=== PATIENT | female | born 1940 | race Caucasian/White ===

== ENCOUNTER 2017-07-25 19:59 | Inpatient (IN) ==
--- NOTE | 2017-07-25 21:03 | Diag Imaging Result Doc PS360 ---
EXAM: CT PELVIS W/O CONTRAST HISTORY: pain TECHNIQUE: CT pelvis without contrast. Dose reduction protocol. COMPARISON: None. No plain films taken. FINDINGS: There has been prior orthopedic replacement of the left hip. The femoral head component is well-positioned within the acetabular component. There is an intertrochanteric fracture to the right hip. Femoral head component remains in the acetabulum. Femoral shaft is rotated. No separation at the pubic symphysis. The bones are osteopenic. IMPRESSION: Intertrochanteric fracture to the right hip. Electronically signed by Ej Camarillo 07/25/2017 9:01 PM
[2017-07-25] MEDS ORDERED: NS 1,000 ML IV ONE (22:31)
--- NOTE | 2017-07-25 22:38 | PROVIDER DOCUMENTATION ---
This chart was entered by Tasha Dooley Scribe, acting as scribe for Darryl Amaro MD. HPI-Musculoskeletal Pain/Inj - GENERAL Chief Complaint: Hip Pain Stated Complaint: FALL/ R HIP PAIN Time Seen by Provider: 07/25/17 20:22 Source: patient - HX OF PRESENT ILLNESS-MUSKULOSKELTAL Nature of Presenting Problem: 77 year old F presents to the ED from [facility] for a fall. Pt fall and hit head on the door and is c/o right hip pain. Unknown of LOC. Quality of Pain: reports: aching Severity in ED: mild Onset/Duration: this evening Timing: still present Any recent injury?: Yes Locality of Occurance: Other (W) Similar Symptoms Previously?: No Review of Systems - Adult - REVIEW OF SYSTEMS - ADULT Constitutional: denies: chills, fever Eyes: reports: no symptoms reported Ears, Nose, Mouth & Throat: reports: no symptoms reported Cardiovascular: reports: no symptoms reported Respiratory: denies: cough, shortness of breath Gastrointestinal: denies: nausea, vomiting Genitourinary: reports: no symptoms reported Musculoskeletal: reports: bone pain, joint pain. denies: muscle aches, muscle weakness Integumentary: denies: skin sores/ulcer, skin thickening Neurological: reports: no symptoms reported Psychiatric: reports: no symptoms reported Endocrine: reports: no symptoms reported Hematologic/Lymphatic: reports: no symptoms reported Allergic/Immunologic: reports: no symptoms reported All Other Systems: Reviewed and Negative Past History - Adult - PAST MEDICAL HISTORY-ADULT Review of Records: reports: Nursing Assessment Review, Medications Reviewed Major Childhood Illnesses: reports: denies history Cardiovascular: reports: CHF, HTN Respiratory: reports: COPD Gastrointestinal: reports: GERD Obstetrical/Gynecological: reports: uterine/ovarian cancer Neurological: reports: CVA Psychiatric: reports: bipolar, schizophrenia, other (paranoia) Endocrine/Immune: reports: Diabetes, thyroid disorder - IMMUNIZATION STATUS Childhood Immunizations: See Nurse Assessment Flu Vaccine: See Nurse Assessment - SOCIAL HISTORY Smoking: quit greater than 1 year Substance Use: none/never Alcohol Use Frequency: sober (former use) Living Situation: group ([facility] for now) Physical Exam-Injury Related - Physical Exam-Injury Related Initial Vital Signs Reviewed: Yes General Appearance: alert Head, Ears, Nose, Mouth & Throat: normocephalic/atraumatic Respiratory: chest non-tender, lungs clear, normal breath sounds Cardiovascular: normal peripheral pulses, regular rate, rhythm, no edema Abdominal Exam: non tender, soft Extremity: tenderness (right anterior knee with painful ROM to knee and right hip) Integumentary: normal color, warm/dry Progress - PLAN OF CARE/RESULTS Progress/Plan/Lab Results: Vital Signs - 8 hr 07/25/17 20:10 Temperature 97.9 F Pulse Rate 89 Respiratory Rate 24 Blood Pressure 136/127 O2 Sat by Pulse Oximetry 96 Orders Category Date Time Status Admit - [facility] Routine AdmDCTranf 07/25/17 22:31 Ordered Neurological Check Q4H Care 07/25/17 22:33 Active Vital Signs Order Q 4-HR ASSESS Care 07/25/17 22:31 Active Z-Document. for Tele Applied ORDERED Care 07/25/17 22:33 Active NPO Diet 07/25/17 22:[address] PELVIS W/O CONTRAST [CT] Stat Exams 07/25/17 20:23 Completed 0.9% Sodium Chloride Inj [Ns] 1,000 ml Med 07/25/17 22:31 Discontinued IV KVO Morphine Med 07/25/17 22:31 Active 2 mg IV Q2H PRN PRN Telemetry [OM.EQ] Routine Oth 07/25/17 22:31 Active Transfer/Admit Order [TRANSFER] Routine Transfer 07/25/17 22:26 Ordered - CT/MRI 1 CT Study: Pelvis Impression: Abnormal CT Results: Intertrochanteric fracture to the right hip--Dr. Camarillo(radiologist) - CONSULTS/PCP/HOSPITALIST Notification #1 *Consult/PCP/Hospitalist*: Dr. Pascal(Hospitalist) Time Discussed: 21:53 Reason/Comments: consult for admission Consult Disposition: Admit Departure - Departure Date of Disposition Decision: 07/25/17 Time of Disposition Decision: 22:37 DIAGNOSIS: Fractured hip Disposition: ADMITTED INPATIENT 09 Certified Medical Emergency: Emergent Condition: Stable Referrals and Follow-Ups: None,PCP [Primary Care Provider] - - Critical Care Note This patient required my direct & personal management of CC.: No Attestation - Physician/ TRISTIAN Attestation Patient care was provided by Advanced Practice Provider:: No The physician spent face to face time with patient:: Yes Advanced Practice Provider documentation review:: Supervising physician onsite and consulted in the evaluation and care of this patient. The physician did have a face to face encounter with the patient. This chart was documented by the indicated scribe, (Tasha Dooley Scribe) and accurately reflects the services I performed and decisions made by me, Darryl Amaro MD, as attested by the provider's signature.
[2017-07-26] MEDS ORDERED: NS 1,000 ML IV SCH (01:09)
[2017-07-26] MEDS ORDERED: ZOFRAN IV PRN ×2 (01:25→15:28)
[2017-07-26 01:41] LABS: MANUAL DIFF NEEDED? NO
[2017-07-26 01:43] LABS: BASO% 0.1 % (0.0-0.8); HEMATOCRIT 32.7 % (37.0-47.0); HEMOGLOBIN 10.8 g/dL (12.0-16.0); IMM GRAN# 0.03 X1000 (0.0-0.04); IMM GRAN% 0.3 % (0.0-0.5); LYMPH# 0.93 X1000 (1.2-3.4); LYMPH% 8.7 % (20.5-51.1); MCH 28.9 PG (27-31); MCV 87.4 FL (81-99); MONO# 1.37 X1000 (0.11-0.59); MONO% 12.7 % (1.7-9.3); MPV 10.1 FL (7.4-10.4); NEUT% 78.2 % (42.2-75.2); PLT 316 X1000 (130-400); RBC 3.74 XMIL (4.2-5.4)
[2017-07-26 01:51] LABS: INR 1.02; PROTIME 10.7 Seconds (9.2-11.7); PTT 27.3 Seconds (22.0-36.0)
[2017-07-26 02:06] LABS: ALBUMIN 3.6 g/dL (3.5-5.0); CALCIUM 8.9 mg/dL (8.8-10.2); POTASSIUM 3.5 mmol/L (3.5-5.1); TOTAL BILIRUBIN 0.23 mg/dL (0.20-1.00); TOTAL PROTEIN 6.4 g/dL (6.3-8.3)
[2017-07-26] MEDS: MORPHINE IV PRN ×3 (02:50→21:28)
[2017-07-26 03:47] LABS: URINE CULTURE NEEDED? NO; URINE MICRO REVIEW NEEDED? NO; URINE SOURCE CATH
[2017-07-26 04:09] LABS: BILIRUBIN URINE NEGATIVE (NEGATIVE); BLOOD URINE NEGATIVE (NEGATIVE); COLOR STRAW; GLUCOSE URINE NEGATIVE (NEGATIVE); LEUKOCYTES URINE NEGATIVE (NEGATIVE); NITRITE URINE NEGATIVE (NEGATIVE); PROTEIN URINE NEGATIVE (NEGATIVE); SP GRAVITY URINE 1.003; TURBIDITY URINE CLEAR (CLEAR); UROBILINOGEN URINE NORMAL (NORMAL)
[2017-07-26 04:10] LABS: UR EPITHELIAL CELLS <10 /HPF (<10); URINE BACTERIA NEGATIVE /HPF; URINE RBC <10 /HPF (<10); URINE WBC <10 /HPF (<10)
[2017-07-26] MEDS: PROTONIX IV SCH (04:47)
[2017-07-26] MEDS: SODIUM CHLORIDE 0.9% INJ SCH (04:47)
[2017-07-26] MEDS: APRESOLINE IV PRN ×2 (05:37→17:28)
--- NOTE | 2017-07-26 06:02 | Diag Imaging Result Doc PS360 ---
EXAM: CHEST-PORTABLE HISTORY: copd TECHNIQUE: Semiupright portable AP COMPARISON: 07/23/2017 FINDINGS: The lungs are well expanded. Heart is not enlarged. The vessels are not distended. There are no infiltrates. No pleural effusions identified. IMPRESSION: Negative chest. Electronically signed by Ej Camarillo 07/26/2017 6:00 AM
--- NOTE | 2017-07-26 07:59 | HISTORY AND PHYSICAL ---
CHIEF COMPLAINT: Fall with hip pain. HISTORY OF PRESENT ILLNESS: Ms. Morton is a 77-year-old female, who went to [facility] from [facility] after a fall. A CT scan of her abdomen and pelvis showed a right intertrochanteric hip fracture. She was transferred to [facility] for surgical consultation. She has a past medical history of hypertension, hypothyroidism, osteoporosis, rheumatoid arthritis, chronic back, knee and left hip pain. She also has COPD, nutritional deficits, a history of uterine cancer. Has diet controlled diabetes mellitus type 2. This is all from her previous medical history. Daughter is at bedside however, she has had a stroke and is unable to give very much information about her mother. Her mother has been in [facility] for roughly 5 weeks. I am unsure exactly what she went to [facility] for. Her daughter stated that she thinks it was because she started mixing up her medications. At any rate, the patient is oriented only to person. She does know her daughter. She is disoriented to place, time and situation. No laboratory data has been obtained at this point. The patient will be admitted for further evaluation and treatment. PAST SURGICAL HISTORY: 1. Appendectomy. 2. Partial thyroidectomy. 3. Left hip surgery in 2016. 4. Bilateral cataract surgery. 5. Complete hysterectomy. FAMILY HISTORY: Mother had CVA and coronary artery disease. All also had a thyroidectomy. Father had hypertension. Daughter as noted above has had a stroke. SOCIAL HISTORY: Denies tobacco, quit drinking 33 years ago and went to . Remote history of marijuana use. No illicit drug use at this point. Was living at home alone from what I understand, 5 weeks ago and has been in [facility] for the past 5 weeks. ALLERGIES: No known drug allergies. HOME MEDICATIONS: Nursing is working on reconciling a list of home medications. However it is not completed. Order has been placed for nursing to place reconciled medications in the computer. REVIEW OF SYSTEMS: Fourteen point review of systems conducted with the patient. Pertinent positives listed above in the HPI. This was limited due to patient's mentation. However, she denied further complaint and all other systems were reviewed and negative. PHYSICAL EXAMINATION: VITAL SIGNS: Temp 98 degrees, pulse 104, respirations 18, blood pressure 170/89, oxygen saturation 97 on room air. GENERAL: This is a pleasantly confused 77-year-old female, looks older than stated age lying in the ER stretcher. States that she has continued hip pain. She is in no acute distress. Oriented to person. Disoriented to time and situation. Is not able to answer most questions. HEENT: Head is atraumatic, normocephalic. Pupils equal, round, reactive to light. Extraocular eye movement intact. Sclerae is anicteric. Conjunctivae is mildly pale. Oral mucosa is dry. NECK: Supple. The trachea is midline. CARDIAC: S1, S2 appreciated. No murmurs, gallops, rubs. LUNGS: Clear to auscultation bilaterally. No rhonchi, wheezes or rales. ABDOMEN: Soft, nondistended, nontender. Bowel sounds present in all 4 quadrants. Normoactive. No pulsatile mass. No organomegaly. EXTREMITIES: No clubbing, cyanosis, or edema. 2+ pedal pulses. The patient unwilling to move lower extremities related to pain. GENITOURINARY: Cobos catheter placed, otherwise deferred. DIAGNOSTIC DATA: No laboratory data at this time. It has been ordered stat. CT of the abdomen and pelvis showed a right intertrochanteric hip fracture. ASSESSMENT AND PLAN: 1. Right hip fracture. Consult Ortho. Defer to Ortho for possible De Luna's traction. Morphine p.r.n. as needed for pain. 2. Hypertension. Hydralazine 10 mg IV q.6 p.r.n. We will continue home medications when available. 3. Chronic pain syndrome. At this time this will be treated by patient's morphine. Will reassess home medications as noted above when reconciled. 4. Hypothyroidism. Check a TSH level. Restart Synthroid when reconciled. Adjust if needed. 5. Chronic obstructive pulmonary disease without exacerbation. Aware. We will monitor. Further recommendations per patient clinical course. Dictated by SARA Hidalgo for Jennifer Cabello MD cc: SARA Hidalgo MD Malcolm R. Hendricks, MD Dr. Jeffries, [facility]
--- NOTE | 2017-07-26 08:01 | Diag Imaging Result Doc PS360 ---
EXAM: CT HEAD/C-SPINE W/O CONTRAST INDICATION: fall and hit head TECHNIQUE: COMPARISON: 07/23/2017 FINDINGS: Head: There is fairly extensive patchy low attenuation in the periventricular and subcortical white matter suggesting microangiopathy, stable. There is no definite acute infarct given the limited sensitivity of CT versus MRI. There is no discrete intracranial mass, mass effect, or intracranial hemorrhage. The surrounding soft tissues are essentially unremarkable. The calvaria is intact. C-spine: There is degenerative disc disease with loss of disc space height and marginal osteophyte formation at virtually every cervical level, most significant at C3-4 through C6-7. These changes are causing some degree of central canal and neuroforaminal narrowing at multiple levels. Otherwise, there is no discrete fracture, subluxation, or intrinsic osseous lesion. The surrounding soft tissues are essentially unremarkable. IMPRESSION: 1.Stable chronic changes but no evidence of acute intracranial pathology. 2.Extensive multilevel degenerative arthropathy but no evidence of fracture or other definite acute C-spine injury. Electronically signed by Dennis Pichardo 07/26/2017 7:58 AM
[2017-07-26] MEDS ORDERED: XYLOCAINE-MPF 2% ONE ×2 (08:18→10:56)
[2017-07-26] MEDS ORDERED: DIPRIVAN 1% ONE ×2 (08:18→10:56)
--- NOTE | 2017-07-26 10:55 | CONSULTATION ---
DATE OF CONSULTATION: 07/26/2017 CHIEF COMPLAINT: Right hip pain. HISTORY OF PRESENT ILLNESS: Ms. Morton is a 77-year-old female who fell yesterday. She ended up presenting to [place] emergency room where they diagnosed her with a hip fracture and sent her over here to [facility] for admission and surgical consideration. Most of her pain is in the right hip. She was unable to ambulate after the fall. She has a lot of pain in the right hip if she moves it at all. The foot is better when she stays still. PAST MEDICAL HISTORY: Hypertension, hypothyroidism, osteoporosis, back pain, COPD, history of uterine cancer, type 2 diabetes. PAST SURGICAL HISTORY: Appendectomy and thyroidectomy. She had a hip hemiarthroplasty on the left side back in 2016. Hysterectomy. ALLERGIES: No known drug allergies. MEDICATIONS: Per the medical record. FAMILY HISTORY: Positive for heart disease. SOCIAL HISTORY: She denies any alcohol use or any tobacco use. REVIEW OF SYSTEMS: Positive for this right hip pain. All other systems are essentially negative. PHYSICAL EXAMINATION: General: Elderly female, in no acute distress. Head and neck: Normocephalic, atraumatic. Respirations: Nonlabored. Cardiovascular: Regular rate. Abdomen: Nondistended. Extremities: Right lower extremity exam shows tenderness to palpation at the hip. She has good dorsiflexion and plantar flexion of the foot and ankle. There is 1+ DP pulse. No tenderness to palpation at the knee. IMAGING: CT scan shows an intertrochanteric fracture with some minimal displacement. ASSESSMENT: Right intertrochanteric fracture. PLAN: I discussed with Ms. Morton' daughter, who is power of traffic law attorney, about her condition. I would recommend trochanteric femoral nailing to fix the hip fracture. I went over with her the procedure, risks, benefits, potential complications. Risks include, but are not limited to, infection, wound healing problems, damage to nerves, arteries, veins, numbness, malunion, nonunion, hardware related issues, continued pain, DVT, and anesthesia related risks. After discussing these with the patient and her daughter. They expressed understanding and wish to proceed. We will plan on getting this done today. She will remain NPO. cc: Ez Goldman MD
[2017-07-26] MEDS ORDERED: KEFZOL 1 GM/D5W 1 GM/50 ML IVPB ONE (12:19)
[2017-07-26] MEDS ORDERED: FENTANYL ONE (12:41)
[2017-07-26] MEDS: DEMEROL ONE ×3 (13:25→13:48)
--- NOTE | 2017-07-26 15:13 | PROGRESS NOTE ---
DATE: 07/26/2017 SUBJECTIVE: When I evaluated this patient she was sleeping. Apparently she could not sleep during the night. But after getting her pain medication she was able to sleep. Family members at the bedside, her sister which I believe has the power of bankruptcy attorney. She has an intertrochanteric fracture on the right side. Orthopedic surgery already evaluated this patient and she is getting surgery hopefully today. OBJECTIVE: Vital signs: Temperature 98.7 degrees, pulse 97, respiratory rate 22, blood pressure 154/78, oxygen saturation 168/91. HEENT: Head normocephalic. No trauma. PERRLA. Neck: Supple. No JVD. No masses. Central trachea. Chest: Clear to auscultation. No wheezing. No rales. Abdomen: Soft, nontender, nondistended. No hepatosplenomegaly. Extremities: No edema. She has pain at the level of the right hip. Neurological examination: The patient is sleepy but arousable. LABORATORY: WBC 10.7, hemoglobin 10.8, hematocrit 32.7, platelets 316,000. Sodium 136, potassium 3.5, chloride 94, bicarbonate 28, BUN 13, creatinine 0.9, glucose 130, calcium 8.9, magnesium 1.5. ASSESSMENT AND PLAN: 1. Right hip fracture, Orthopedic surgery evaluated this patient and they will go to the OR hopefully today. This patient has been n.p.o. 2. Hypertension. This patient will be on hydralazine 10 mg IV q.6 hours and I will put this patient back on her home medications as soon as we can. 3. Chronic pain syndrome. Continue with morphine. 4. Hypothyroidism. We will continue to monitor. 5. Chronic obstructive pulmonary disease without exacerbation. Aware. 6. History of paranoid schizophrenia. Apparently this patient was at [facility] when she had the fracture. I had a conversation with the sister and she told me that she is living by herself. I do not think she is able to do that anymore. Somebody else needs to take care of her and she seems to understand. cc: Christian Champion MD
[2017-07-26] MEDS ORDERED: HALDOL IV PRN (15:28)
[2017-07-26] MEDS ORDERED: MILK OF MAGNESIA PO PRN (15:28)
[2017-07-26] MEDS: TYLENOL PO SCH (17:25)
--- NOTE | 2017-07-26 18:28 | OPERATIVE NOTE ---
PROCEDURE DATE: 07/26/2017 PREOPERATIVE DIAGNOSES: Right intertrochanteric fracture. POSTOPERATIVE DIAGNOSIS: Right intertrochanteric fracture. PROCEDURE PERFORMED: Right trochanteric femoral nail for hip fracture. SURGEON: Ez Goldman MD RISK CONTROL OFFICER: SARA Arevalo, who was an integral part of the case with exposure, reduction, implant placement, and closure. She helped with OR efficiency and decreased OR time. ANESTHESIA: General with LMA. BLOOD LOSS: About 100 mL. IMPLANTS: Synthes 11 x 340 trochanteric femoral nail. DISPOSITION: To PACU, hemodynamically stable. INDICATIONS FOR PROCEDURE: Ms. Alma Morton is a 77-year-old female who, unfortunately, fell yesterday, was brought to the ER, and diagnosed with a hip fracture. She was admitted per the hospitalist service and made n.p.o. after midnight for surgery today. I discussed with her and her sister about operative intervention and they both expressed understanding and wished to proceed. DESCRIPTION OF PROCEDURE: Ms. Morton was identified in the preop holding area. The right hip was marked out as the correct surgical site. She was then wheeled to the operating room and placed supine on the operating table. All bony prominences were well padded. She was induced under general anesthesia. LMA was placed. She was then placed into traction boots and hooked to the traction table. A little bit of traction was placed across that right lower extremity. The right lower extremity was then prepped with chlorhexidine gluconate scrub and then ChloraPrep and draped in normal sterile fashion. A surgical pause was performed. We identified the correct patient, correct side, and the correct procedure. Preoperative antibiotics were given. Fluoroscopic imaging was used to show that fracture. We added a little bit of traction to get that fracture lined up perfect and then it actually did line up really well on both AP and lateral views. I made a small incision superior to the greater trochanter. Dissection was carried down through the deep fascia. I got my guidewire in position on AP and lateral views. I then overdrilled that area. I then reamed up to a size 12 reamer and, after that, I placed an 11 x 340 nail. I then placed my guidewire from a helical blade center-center in the head and then drilled it. I placed my helical blade in. After this, the outrigger was removed. Final images were taken, which showed that we had really good reduction of the fracture on both AP and lateral views. We had good position of all hardware. I decided not to put a distal interlocking screw because she had an intact lateral wall. She could compress against that when she bears weight. We then irrigated everything copiously with normal saline. 0 Vicryl was used to close the deep layer, 2-0 Vicryl for the subcu, and fred on the skin. Adaptic, 4 x 4's, and island dressings were placed. The patient was then wheeled from general anesthesia, moved to her own bed, and taken to the PACU in stable condition. Postoperatively, the patient will be weightbearing as tolerated on her right lower extremity. She will be started on Lovenox in the morning and she will complete 24 hours of IV Ancef. cc: Ez Goldman MD
[2017-07-26] MEDS: KEFZOL 1 GM/D5W 1 GM/50 ML IVPB IV SCH (21:27)
[2017-07-26] MEDS: COLACE PO SCH (21:28)
[2017-07-26] MEDS: NS 1,000 ML IV SCH (21:34)
[2017-07-27] MEDS: TYLENOL PO SCH ×4 (00:34→23:10)
[2017-07-27] MEDS: PROTONIX IV SCH (04:59)
[2017-07-27] MEDS: SODIUM CHLORIDE 0.9% INJ SCH (04:59)
[2017-07-27] MEDS: LOVENOX SUBQ SCH (05:00)
[2017-07-27] MEDS: KEFZOL 1 GM/D5W 1 GM/50 ML IVPB IV SCH (05:00)
[2017-07-27] MEDS: MORPHINE IV PRN ×2 (05:00→10:55)
[2017-07-27 05:12] LABS: MANUAL DIFF NEEDED? NO
[2017-07-27 05:33] LABS: AGAP 12; BUN 10 mg/dL (8-22); CALCIUM 8.3 mg/dL (8.8-10.2); CHLORIDE 100 mmol/L (98-107); COSMO 277; POTASSIUM 3.5 mmol/L (3.5-5.1); SODIUM 139 mmol/L (136-145); TCO2 27 mmol/L (25-35)
[2017-07-27 05:42] LABS: BASO% 0.2 % (0.0-0.8); EOS# 0.01 X1000 (0.0-0.7); EOS% 0.1 % (0.0-10.0); HEMOGLOBIN 8.6 g/dL (12.0-16.0); IMM GRAN# 0.03 X1000 (0.0-0.04); IMM GRAN% 0.3 % (0.0-0.5); LYMPH# 1.43 X1000 (1.2-3.4); LYMPH% 15.3 % (20.5-51.1); MCH 28.4 PG (27-31); MCHC 31.9 g/dL (33-37); MCV 89.1 FL (81-99); MONO# 1.49 X1000 (0.11-0.59); MONO% 15.9 % (1.7-9.3); MPV 10.8 FL (7.4-10.4); NEUT% 68.2 % (42.2-75.2); PLT 262 X1000 (130-400); RBC 3.03 XMIL (4.2-5.4)
[2017-07-27] MEDS ORDERED: DESYREL PO PRN (07:58)
[2017-07-27] MEDS ORDERED: MILK OF MAGNESIA PO PRN (07:58)
[2017-07-27] MEDS ORDERED: MAALOX PLUS LIQUID PO PRN (07:58)
--- NOTE | 2017-07-27 08:48 | PROGRESS NOTE ---
DATE: 07/27/2017 SUBJECTIVE: Ms. Morton is a 77-year-old female who is postoperative day 1 from a right trochanteric fixation nail placement. She is doing well with no new complaints. OBJECTIVE: She is a well-developed, well-nourished female. She is alert, oriented, and cooperative with the examination. She is in no acute distress. Vital signs are stable. She is afebrile. Her hemoglobin is 8.6 and her hematocrit is 27.0. Her wound is clean, dry, and intact without sign of infection. Her calf is soft. Her right leg is neurovascularly intact. ASSESSMENT: Stable postoperative day 1 from a right trochanteric fixation nail placement. PLAN: We will continue to monitor her, and she will continue working with physical therapy. We will continue to manage her pain as she progresses with physical therapy. Dictated by MAKEDA Urias for Ez Goldman MD cc: MAKEDA Urias MD
[2017-07-27] MEDS: FERROUS SULFATE PO SCH (10:56)
[2017-07-27] MEDS: KLONOPIN PO SCH ×2 (10:56→20:02)
[2017-07-27] MEDS: DEPAKOTE ER PO SCH ×2 (10:56→20:03)
[2017-07-27] MEDS: PERIDEX MT SCH ×2 (10:56→20:03)
[2017-07-27] MEDS: NS 1,000 ML IV SCH ×2 (10:57→13:59)
[2017-07-27] MEDS: CATAPRES PO SCH (13:59)
--- NOTE | 2017-07-27 16:13 | PROGRESS NOTE ---
DATE: 07/27/2017 SUBJECTIVE: This patient states that she is feeling fine. She is just complaining of right hip discomfort. She is awake, alert and oriented x2. She is not oriented to time. She is not able to say her home address but she is following commands and moving all 4 extremities. OBJECTIVE: Vital Signs: Temperature 98.5 degrees, pulse 105, respiratory rate 16, blood pressure 182/82, oxygen saturation 91% on room air. HEENT: Head normocephalic. No trauma. PERRLA. Neck: Supple. No JVD. No masses. Central trachea. Chest: Clear to auscultation. No wheezing. No rales. Abdomen: Soft, nontender, nondistended. No hepatosplenomegaly. Extremities: She has a right hip dressing with a little bit of blood at the level of the proximal portion. Otherwise she is fine. Neurological Examination: The patient is alert and oriented x2. She is not oriented to time. She moves all 4 extremities and is following commands. LABORATORY: WBC 9.3, hemoglobin 8.6, hematocrit 27.8, platelets 262,000. Sodium 139, potassium 3.5, chloride 100, bicarbonate 27, BUN 10, creatinine 0.8, glucose 111, calcium 8.3. ASSESSMENT AND PLAN: 1. Right intertrochanteric hip fracture status post right trochanteric femoral nail. This patient seems to be doing fine. Orthopedic Surgery is following this patient closely. Physical Therapy has been consulted. We will continue to monitor. Hopefully this patient can be discharged at the beginning of next week to a rehabilitation center. 2. Hypertension. This patient's blood pressure has been elevated. I have placed this patient back on her medication, clonidine and will continue with p.r.n. hydralazine. It looks like she is tolerating a diet so I will reduce the IV fluids and hopefully tomorrow we will stop it. 3. Chronic pain syndrome. Continue with morphine. 4. Hypothyroidism. Continue to monitor. 5. Chronic obstructive pulmonary disease without exacerbation. Aware. 6. History of paranoid schizophrenia and possible dementia. Apparently this patient was at [facility] when she had the fracture. I had a conversation with her sister yesterday and she told me that she is living by herself but probably from now on somebody else is going to be with her. 7. Deep vein thrombosis prophylaxis with Lovenox. 8. Normocytic anemia. We will monitor. We will transfuse as needed. cc: Christian Champion MD
[2017-07-27] MEDS: SEROQUEL PO SCH (20:02)
[2017-07-27] MEDS: COLACE PO SCH (20:02)
[2017-07-28] MEDS: PROTONIX IV SCH (03:18)
[2017-07-28] MEDS: SODIUM CHLORIDE 0.9% INJ SCH (03:18)
[2017-07-28 05:39] LABS: HEMATOCRIT 26.2 % (37.0-47.0); HEMOGLOBIN 8.3 g/dL (12.0-16.0)
[2017-07-28] MEDS: LOVENOX SUBQ SCH (05:54)
[2017-07-28] MEDS: SYNTHROID PO SCH (06:14)
[2017-07-28] MEDS: PERIDEX MT SCH ×2 (08:39→20:00)
[2017-07-28] MEDS: FERROUS SULFATE PO SCH (08:39)
[2017-07-28] MEDS: CATAPRES PO SCH (08:40)
[2017-07-28] MEDS: KLONOPIN PO SCH ×2 (08:40→19:59)
[2017-07-28] MEDS: DEPAKOTE ER PO SCH ×3 (08:42→22:16)
[2017-07-28] MEDS: TYLENOL PO SCH ×3 (08:43→23:57)
[2017-07-28] MEDS: OXY IR PO PRN ×3 (09:05→20:01)
--- NOTE | 2017-07-28 11:44 | PROGRESS NOTE ---
DATE: 07/28/2017 SUBJECTIVE: Ms. Morton is seen today status post hip fixation. At the present time, her incisions are all clean and dry. There is no immediate complications or signs of infection or DVT. Her bandages can be changed routinely, and she can be mobilized partial weightbearing. At this point in time, she can be discharged to rehab center per the hospitalist service. We will sign off and follow up with her in the office in 2-3 weeks. She can be mobilized partial weightbearing with physical therapy upon discharge. Elvis can be removed in 10 days. cc: Dennis Shelton MD
[2017-07-28] MEDS: NS 1,000 ML IV SCH (14:37)
--- NOTE | 2017-07-28 16:33 | PROGRESS NOTE ---
DATE: 07/28/2017 SUBJECTIVE: This patient states that she is feeling fine, she is complaining of just right hip discomfort/pain. She is awake and alert and oriented x3. Family members at the bedside. She is following commands. She is moving all 4 extremities. No signs of infection or DVT. OBJECTIVE: Vital Signs: Temperature 98.2 degrees, pulse 80, respiratory rate 18, blood pressure 166/68, oxygen saturation 94 on room air normocephalic. HEENT: Head normocephalic. No trauma. PERRLA. Neck: Supple. No JVD. No masses. Central trachea. Chest: Clear to auscultation. No wheezing. No rales. Abdomen: Soft, nontender, nondistended. No hepatosplenomegaly. Extremities: She has right hip dressing with mild edema and pain to palpation. Otherwise she is fine. Neurological: The patient is alert and oriented x3. She is not oriented on and off to time. She moves all 4 extremities and she is following commands. LABORATORY: Hemoglobin 8.3, hematocrit 26.2, glucose 119. ASSESSMENT AND PLAN: 1. Right intertrochanteric hip fracture status post right trochanteric femoral nail. She is doing fine. Orthopedic surgery evaluated this patient and they basically signed off. They will monitor this patient 2 or 3 weeks after discharge. Hopefully at the beginning of next week we will be able to send this patient to a rehab center. 2. Hypertension. Continue with the same management. Better controlled. 3. Chronic pain syndrome. Continue with morphine. 4. Hypothyroidism continue to monitor. 5. Chronic obstructive pulmonary disease not in exacerbation. 6. History of paranoid schizophrenia and possible dementia. Apparently this patient was at [facility] when she had the fracture. I had a conversation with the sister 2 days ago and she told me that she is living by herself and probably from now on somebody else is going to live with her. 7. Deep vein thrombosis prophylaxis with Lovenox. 8. Normocytic anemia. Continue to monitor and transfuse as needed. cc: Christian Champion MD
[2017-07-28] MEDS: SEROQUEL PO SCH (19:59)
[2017-07-28] MEDS: COLACE PO SCH (19:59)
[2017-07-29] MEDS: OXY IR PO PRN ×3 (03:09→21:35)
[2017-07-29] MEDS: PROTONIX IV SCH (03:59)
[2017-07-29] MEDS: SODIUM CHLORIDE 0.9% INJ SCH (03:59)
[2017-07-29 05:59] LABS: HEMATOCRIT 26.5 % (37.0-47.0); HEMOGLOBIN 8.2 g/dL (12.0-16.0)
[2017-07-29] MEDS: LOVENOX SUBQ SCH (06:02)
[2017-07-29] MEDS: SYNTHROID PO SCH (06:02)
[2017-07-29 06:41] LABS: AGAP 13; BUN 13 mg/dL (8-22); CALCIUM 8.2 mg/dL (8.8-10.2); CHLORIDE 98 mmol/L (98-107); COSMO 281; POTASSIUM 3.6 mmol/L (3.5-5.1); SODIUM 140 mmol/L (136-145); TCO2 29 mmol/L (25-35)
[2017-07-29] MEDS: FERROUS SULFATE PO SCH (08:25)
[2017-07-29] MEDS: PERIDEX MT SCH ×2 (08:25→21:38)
[2017-07-29] MEDS: CATAPRES PO SCH (08:25)
[2017-07-29] MEDS: DEPAKOTE ER PO SCH ×2 (08:25→21:35)
[2017-07-29] MEDS: TYLENOL PO SCH ×2 (08:25→15:45)
[2017-07-29] MEDS: KLONOPIN PO SCH ×2 (08:28→21:36)
[2017-07-29] MEDS: NS 1,000 ML IV SCH (15:47)
--- NOTE | 2017-07-29 18:12 | PROGRESS NOTE ---
DATE: 07/29/2017 SUBJECTIVE: The patient is awake, she is alert and able to engage in conversation. She has her daughter by her bedside. The patient's daughter would like oxygen as well as nebulizer treatments resumed. OBJECTIVE: Vital signs: Temperature 98.4 degrees, pulse of 80, respirations 20 , blood pressure 156/78, oxygen saturation 94%. HEENT: She is atraumatic, normocephalic and she is anicteric. Cardiovascular: S1 S2. Respiratory: She has good air entry bilaterally. Abdomen: Soft, nontender. No masses. Extremities: No evidence of edema. Central nervous system: No focal deficit noted. LABS: Hematocrit 26.5. Sodium 140, potassium 3.6, chloride 98, bicarb 29, BUN is 13, creatinine 0.8, glucose 132. ASSESSMENT AND PLAN: 1. Right intratrochanteric hip fracture status post right trochanteric femoral nail placement. She will need pain control optimized and maintain her on DVT prophylaxis using Lovenox. She will need PT, OT evaluation and long-term she needs to be placed in a rehab facility. 2. Anemia. Will check serum iron, TIBC, ferritin, B12, folic_acid level and then transfuse with 1 unit of packed red blood cells. 3. Hypothyroidism stable, continue Synthroid. 4. Chronic obstructive pulmonary disease. Continue the patient on oxygen and also start on neb treatments on a p.r.n. basis. 5. History of paranoid schizophrenia with possible dementia. Stable. Patient not agitated at this time. DISPOSITION: Will consult with [employer] to assess with retirement facility placement. cc: Silverio Pope MD MTDD
[2017-07-29] MEDS: COLACE PO SCH (21:34)
[2017-07-29] MEDS: SEROQUEL PO SCH (21:35)
[2017-07-30] MEDS: TYLENOL PO SCH ×3 (00:43→16:09)
[2017-07-30] MEDS: OXY IR PO PRN ×2 (04:02→12:55)
[2017-07-30] MEDS: SODIUM CHLORIDE 0.9% INJ SCH (04:32)
[2017-07-30] MEDS: PROTONIX IV SCH (04:32)
[2017-07-30] MEDS: LOVENOX SUBQ SCH (06:05)
[2017-07-30] MEDS: SYNTHROID PO SCH (06:05)
[2017-07-30] MEDS: DEPAKOTE ER PO SCH ×2 (08:31→21:47)
[2017-07-30] MEDS: CATAPRES PO SCH (08:31)
[2017-07-30] MEDS: KLONOPIN PO SCH ×2 (08:31→21:47)
[2017-07-30] MEDS: PERIDEX MT SCH ×2 (08:31→21:48)
[2017-07-30] MEDS: FERROUS SULFATE PO SCH (08:32)
[2017-07-30 11:38] LABS: UNBOUND IRON 118 ug/dL (112-346)
[2017-07-30 12:02] LABS: TOTAL IRON 153 ug/dL (49-151)
[2017-07-30 12:07] LABS: IRON SATURATION 56 %; TIBC 271 ug/dL
[2017-07-30] MEDS: DUONEB (A & A) INH PRN ×2 (15:09→19:15)
--- NOTE | 2017-07-30 15:43 | PROGRESS NOTE ---
DATE: 07/30/2017 SUBJECTIVE: This patient looks stable. She is complaining of just right hip discomfort. She is awake, alert and oriented x3. Family members at the bedside. She is following commands. Moving all 4 extremities. No sign of infection or deep vein thrombosis. OBJECTIVE: Vital Signs: Temperature 98.4 degrees, pulse 68, respiratory rate 20, blood pressure 150/71, oxygen saturation 97% on room air. LABORATORY: No laboratory work done today. ASSESSMENT AND PLAN: 1. Right intertrochanteric hip fracture status post right trochanteric femoral nail. She is doing fine. Orthopedic surgery evaluated this patient and they basically signed off. They will monitor this patient 2-3 weeks after discharge. Hopefully tomorrow I will be able to discharge this patient to a rehab center in [place]. 2. Hypertension. Continue with the same management. 3. Chronic pain syndrome. Continue with morphine. 4. Hypothyroidism. Continue to monitor. 5. COPD. Not in exacerbation. 6. History of paranoid schizophrenia and possible dementia. Apparently this patient was at [facility] when she had the fracture. I had a conversation with the sister a few days ago and she told me that she is living by herself, but probably from now on, somebody else is going to be with her. 7. Deep vein thrombosis prophylaxis with Lovenox. 8. Normocytic anemia. Continue to monitor and transfuse as needed. cc: Christian Champion MD
[2017-07-30] MEDS: NS 1,000 ML IV SCH (16:20)
--- NOTE | 2017-07-30 18:27 | PROGRESS NOTE ---
DATE: 07/30/2017 SUBJECTIVE: Ms Morton several days out now from her right trochanteric femoral nail. She seems to be doing fairly well. Her pain seems under control and she has been getting up out of bed. OBJECTIVE: Right lower extremity exam, dressing is clean, dry and intact. She is able to dorsiflex, plantar flex toes well, she has good sensation light touch the toes. ASSESSMENT: Status post right trochanteric femoral nailing. PLAN: I think Ms Morton is doing great. She is weight bear as tolerated right lower extremity. She is okay to be discharged from an orthopedic standpoint and I will see her in about 2 weeks in clinic. cc: Ez Goldman MD
[2017-07-30] MEDS: COLACE PO SCH (21:47)
[2017-07-30] MEDS: SEROQUEL PO SCH (21:47)
[2017-07-31] MEDS: TYLENOL PO SCH ×3 (01:02→18:07)
[2017-07-31 05:29] LABS: MANUAL DIFF NEEDED? NO
[2017-07-31 05:58] LABS: BASO% 0.4 % (0.0-0.8); EOS# 0.14 X1000 (0.0-0.7); EOS% 1.3 % (0.0-10.0); HEMATOCRIT 31.6 % (37.0-47.0); HEMOGLOBIN 10.4 g/dL (12.0-16.0); IMM GRAN# 0.03 X1000 (0.0-0.04); IMM GRAN% 0.3 % (0.0-0.5); LYMPH# 1.62 X1000 (1.2-3.4); LYMPH% 15.4 % (20.5-51.1); MCH 28.9 PG (27-31); MCHC 32.9 g/dL (33-37); MCV 87.8 FL (81-99); MONO# 1.25 X1000 (0.11-0.59); MONO% 11.9 % (1.7-9.3); NEUT% 70.7 % (42.2-75.2); PLT 337 X1000 (130-400)
[2017-07-31 06:00] LABS: AGAP 13; BUN 13 mg/dL (8-22); CALCIUM 8.6 mg/dL (8.8-10.2); CHLORIDE 98 mmol/L (98-107); COSMO 281; SODIUM 141 mmol/L (136-145); TCO2 30 mmol/L (25-35)
[2017-07-31] MEDS: LOVENOX SUBQ SCH (06:41)
[2017-07-31] MEDS: OXY IR PO PRN ×2 (06:41→16:12)
[2017-07-31] MEDS: SYNTHROID PO SCH (06:41)
[2017-07-31] MEDS: APRESOLINE IV PRN (06:41)
[2017-07-31] MEDS: SODIUM CHLORIDE 0.9% INJ SCH (06:41)
[2017-07-31] MEDS: PROTONIX IV SCH (06:41)
[2017-07-31] MEDS: DUONEB (A & A) INH PRN ×3 (07:23→19:31)
[2017-07-31] MEDS ORDERED: KLOR-CON PO ONE (08:08)
[2017-07-31] MEDS: KLONOPIN PO SCH ×2 (09:18→21:28)
[2017-07-31] MEDS: FERROUS SULFATE PO SCH (09:21)
[2017-07-31] MEDS: DEPAKOTE ER PO SCH ×2 (09:22→21:28)
[2017-07-31] MEDS: PERIDEX MT SCH ×2 (09:23→21:27)
[2017-07-31] MEDS: CATAPRES PO SCH (09:23)
--- NOTE | 2017-07-31 14:34 | DISCHARGE SUMMARY ---
ADMISSION DATE: 07/25/2017 DISCHARGE DATE: 07/31/2017 CONSULTATIONS: Dr. Goldman with orthopedics. PRIOR PROCEDURES: 1. Abdomen and pelvis CT showed intertrochanteric fracture to the right hip. 2. Head cervical spine CT showed stable chronic changes, but no evidence of acute intracranial pathology. Extensive multilevel degenerative arthropathy with no evidence of fracture or other definite acute C-spine injury. 3. Right trochanteric femoral nail for hip fracture performed by Dr. Ez Goldman. DISCHARGE DIAGNOSES: 1. Right intertrochanteric fracture status post right trochanteric femoral nailing by Dr. Goldman. She is weightbearing as tolerated to the right lower extremity. Follow up with Dr. Goldman in the clinic in 2 weeks. Patient is being discharged to [facility]. 2. Hypertension. Continue with home medicines. 3. Chronic pain syndrome. Continue with home medications. 4. Hypothyroidism. Continue Synthroid. 5. Chronic obstructive pulmonary disease without exacerbation. 6. History of paranoid schizophrenia and possible dementia. The patient was at [facility] when she had the fracture. 7. Normocytic anemia. Stable. HOSPITAL COURSE: Ms. Morton is a 77-year-old female, who went to [facility] from [facility] after a fall. CT scan of her abdomen and pelvis showed a right intertrochanteric hip fracture. She was transferred to [facility] for surgical consultation. She carries a past medical history of hypertension, hypothyroidism, osteoporosis, rheumatoid arthritis, chronic back pain, knee and left hip pain. She also has COPD, nutritional deficits, a history of uterine cancer, diabetes type 2 diet controlled. The patient had been at [facility] for roughly 5 weeks prior to her admission for paranoid schizophrenia and dementia. The patient underwent a right trochanteric femoral nailing by Dr. zE Goldman on 07/26/2017. She has been working with physical therapy and he is weightbearing as tolerated on right lower extremity. From an orthopedic standpoint she is okay to be discharged and will follow up with Dr. Goldman in 2 weeks in the clinic. VITAL SIGNS AT TIME OF DISCHARGE: Temperature is 97.7 degrees, heart rate 87, respirations 19, blood pressure 173/70, O2 is 98% on room air. DISCHARGE DIET: Gluten free diet. DISCHARGE MEDICATIONS: As per Dr. Quigley. Please see MAR. FOLLOWUP: Ms. Morton is being discharged to [facility]. She is to follow up with Dr. Goldman in 2 weeks. She is to be weightbearing as tolerated to her right lower extremity. She will return to the ED for any worsening of symptoms. Time discharging this patient 35 minutes Dictated by SARA Oneil for Christian Champion MD cc: Christian Champion MD [facility]
[2017-07-31] MEDS: NS 1,000 ML IV SCH (16:12)
[2017-07-31] MEDS: SEROQUEL PO SCH (21:28)
[2017-07-31] MEDS: COLACE PO SCH (21:28)
[2017-08-01] MEDS: TYLENOL PO SCH (01:34)
[2017-08-01] MEDS: OXY IR PO PRN (05:46)
[2017-08-01] MEDS: PROTONIX IV SCH (05:47)
[2017-08-01] MEDS: LOVENOX SUBQ SCH (05:47)
[2017-08-01] MEDS: SODIUM CHLORIDE 0.9% INJ SCH (05:47)
[2017-08-01] MEDS: SYNTHROID PO SCH ×2 (05:47→05:59)
[2017-08-01 07:18] VITALS: BP 186/86
[2017-08-01] MEDS: DUONEB (A & A) INH PRN (07:39)
--- NOTE | 2017-08-02 09:59 | DISCHARGE SUMMARY ---
ADMISSION DATE: 07/25/2017 DISCHARGE DATE: 08/01/2017 ADDENDUM REPORT The patient was discharged initially on 07/31/2017. However, her discharge was held due to no bed being available at that time at [facility] where she does have a bed available today at [facility] and is being discharged. There were no acute changes overnight. She is still appropriate for discharge. VITAL SIGNS: Temperature is 98.7, heart rate 87, respirations 12, blood pressure 186/86, O2 sat 98% on room air. Dictated by SARA Oneil for Christian Champion MD cc: Christian Champion MD
== END 2017-08-01 08:45 ==
LOC: 4N 19:59 → P.ED 19:59 → SUATTDRO 23:39 → OBSVTOIN 23:39
PROVIDERS: ATTEND Internal Medicine